=== PATIENT | female | born 2000 | race Caucasian/White ===

== ENCOUNTER 2023-01-09 11:59 | Emergency (ER) | payer OTHER ==
[2023-01-09 14:09] VITALS: BP 114/74; PULSE 75; RESP 18; TEMP 98.2
[2023-01-09] MEDS ORDERED: ERYTHROMYCIN 5 MG/GM OPHTH OINT 3.5 GM TUBE LEFT EYE STA (14:11)
--- NOTE | 2023-01-09 14:39 | ED ---
Eye Problem HPI - General Chief complaint: Eye Problems Stated complaint: eye issues Time Seen by Provider: 01/09/23 13:53 Source: patient Mode of arrival: ambulatory Limitations: no limitations - History of Present Illness Initial comments: Patient is a 22-year-old female who presents to emergency department with concern for pinkeye. Patient states it started 3 weeks ago in both eyes that she was prescribed an antibiotic drop and use it for 1 week as directed. Patient states her symptoms have returned after about 5 days off the antibiotic. Her left eye is red and she reports drainage and crusting out of each eye. She denies pain. Denies blurry vision, double vision. She denies injury to the eye. She does not wear contact lens. Denies history of seasonal allergies. - Related Data Allergies Allergy/AdvReac Type Severity Reaction Status Date / Time No Known Allergies Allergy Verified 01/09/23 12:08 Review of Systems ROS Statement: Those systems with pertinent positive or pertinent negative responses have been documented in the HPI. ROS Other: All systems not noted in ROS Statement are negative. Past Medical History Past Medical History: No Reported History History of Any Multi-Drug Resistant Organisms: None Reported Past Surgical History: No Surgical Hx Reported Past Psychological History: No Psychological Hx Reported Smoking Status: Never smoker Past Alcohol Use History: None Reported Past Drug Use History: Prescription Drug Abuse General Exam Limitations: no limitations General appearance: alert Eye exam: Present: PERRL, EOMI, conjunctival injection (Left eye), other (no cobblestoning or chemosis). Absent: normal appearance (Conjunctival injection of left eye. Minimal crusting in the corner of both eyes), scleral icterus, periorbital swelling, periorbital tenderness Pupils: Present: normal accommodation Respiratory exam: Present: normal lung sounds bilaterally. Absent: respiratory distress, wheezes, rales, rhonchi, stridor Cardiovascular Exam: Present: regular rate, normal rhythm, normal heart sounds. Absent: systolic murmur, diastolic murmur, rubs, gallop, clicks Neurological exam: Present: alert Psychiatric exam: Present: normal affect, normal mood Skin exam: Present: warm, dry, intact, normal color. Absent: rash Course Vital Signs 01/09/23 01/09/23 12:06 14:03 Temperature 99.4 F 98.2 F Pulse Rate 85 75 Respiratory 20 18 Rate Blood Pressure 112/75 114/74 O2 Sat by Pulse 99 98 Oximetry Medical Decision Making - Medical Decision Making Was pt. sent in by a medical professional or institution (, BRIAN, EKG TECHNICIAN, urgent care, hospital, or group home...) When possible be specific @ -No Did you speak to anyone other than the patient for history (EMS, parent, family, police, friend...)? What history was obtained from this source @ -No Did you review nursing and triage notes (agree or disagree)? Why? @ -I reviewed and agree with nursing and triage notes Were old charts reviewed (outside hosp., previous admission, EMS record, old EKG, old radiological studies, urgent care reports/EKG's, group home records)? Report findings @ -No old charts were reviewed Differential Diagnosis (chest pain, altered mental status, abdominal pain women, abdominal pain men, vaginal bleeding, weakness, fever, dyspnea, syncope, headache, dizziness, GI bleed, back pain, seizure, CVA, palpatations, mental health)? Viral conjunctivitis, bacterial conjunctivitis, ALLERGIC conjunctivitis. This list is not meant to be all inclusive EKG interpreted by me (3pts min.). @ -As above X-rays interpreted by me (1pt min.). @ -None done CT interpreted by me (1pt min.). @ -None done U/S interpreted by me (1pt. min.). @ -None done What testing was considered but not performed or refused? (CT, X-rays, U/S, labs)? Why? @ -None What meds were considered but not given or refused? Why? @ -[None] Did you discuss the management of the patient with other professionals (professionals i.e. BRIAN Winkler, EKG TECHNICIAN, lab, RT, psych nurse, social services director, gold marker, teacher, chief digital media officer, skilled nursing case manager)? Give summary @ -[No] Was smoking cessation discussed for >3mins.? @ -[No] Was critical care preformed (if so, how long)? @ -[No] Were there social determinants of health that impacted care today? How? (Homelessness, low income, unemployed, alcoholism, drug addiction, transportation, low edu. Level, literacy, decrease access to med. care, penitentiary, rehab)? @ -[No] Was there de-escalation of care discussed even if they declined (Discuss DNR or withdrawal of care, Hospice)? DNR status @ -[No] What co-morbidities impacted this encounter? (DM, HTN, Smoking, COPD, CAD, Cancer, CVA, ARF, Chemo, Hep., AIDS, mental health diagnosis, sleep apnea, morbid obesity)? @ -[None] Was patient admitted / discharged? Hospital course, mention meds given and route, prescriptions, significant lab abnormalities, going to OR and other pertinent info. @ -Discharged with new antibiotic drops. Patient to follow-up with ophthalmology as etiology is usually viral and bacterial cause should have went away with antibiotic drops. Undiagnosed new problem with uncertain prognosis? @ -[No] Drug Therapy requiring intensive monitoring for toxicity (Heparin, Nitro, Insulin, Cardizem)? @ -[No] Were any procedures done? @ -[No] Diagnosis/symptom? @ conjunctivitis Acute, or Chronic, or Acute on Chronic? @ -acute Uncomplicated (without systemic symptoms) or Complicated (systemic symptoms)? @ -uncomplicated Side effects of treatment? @ -[No] Exacerbation, Progression, or Severe Exacerbation? @ -[No] Poses a threat to life or bodily function? How? (Chest pain, [place], [place], pneumonia, PE, COPD, DKA, ARF, appy, cholecystitis, CVA, Diverticulitis, Homicidal, Suicidal, threat to staff... and all critical care pts) @ -No Dr. Mosley is my attending Disposition Clinical Impression: Conjunctivitis Disposition: HOME SELF-CARE Condition: Poor Instructions (If sedation given, give patient instructions): Conjunctivitis (ED) Additional Instructions: Apply ointment every 6 hours for 7 days. Please follow-up with jockey's agent in 1-2 days. Return to the emergency department if you experience new, concerning, or worsening symptoms. Is patient prescribed a controlled substance at d/c from ED?: No Referrals: Nonstaff,Physician [REFERRING] - 1-2 days Benny Gill MD [STAFF PHYSICIAN] - 1-2 days
== END 2023-01-09 15:34 | disposition home or self-care (01) ==
LOC: EC 11:59
DX: H10.9 Unspecified conjunctivitis (principal)
CPT/HCPCS: 99283